=== PATIENT | male | born 1950 | race Caucasian/White ===

== ENCOUNTER 2018-11-24 13:16 | Inpatient (IN) | payer MEDICARE, OTHER ==
[2018-11-24] VITALS (14 sets, daily range): BP systolic 118–154; BP diastolic 63–95; PULSE 52–78; RESP 12–22
[~2018-11-24] VITALS: Ht 182.9 cm; Wt 105.7 kg
[2018-11-24] MEDS ORDERED: GABA300C16 PO (13:50)
[2018-11-24] MEDS ORDERED: LISI-313 PO (13:51)
[2018-11-24] MEDS ORDERED: METF500T24 PO (13:51)
[2018-11-24] MEDS ORDERED: PIOG30TA12 PO (13:52)
[2018-11-24] MEDS ORDERED: HEPARIN 1000 UNITS/ML 10 ML INJ ONE (15:38)
[2018-11-24] MEDS ORDERED: MIDAZOLAM 1 MG/ML 2 ML INJ ONE (15:38)
[2018-11-24] MEDS ORDERED: LIDOCAINE 1% (MDV) 20 ML INJ ONE (15:38)
[2018-11-24] MEDS ORDERED: FENTAnyl 50 MCG/ML VIAL ONE (15:39)
[2018-11-24] MEDS ORDERED: VERAPAMIL 5 MG INJ ONE (15:39)
[2018-11-24] MEDS ORDERED: NITROGLYCERIN (IC) 100 MCG/ML INJ ONE (15:39)
[2018-11-24] MEDS ORDERED: IODIXANOL LOCM 100 ML BTL ONE ×3 (16:38→17:25)
[2018-11-24] MEDS ORDERED: IOHEXOL 350MG/ML 50 ML BTL ONE (16:39)
[2018-11-24] MEDS ORDERED: TICAGRELOR 90 MG TABLET ONE (17:35)
[2018-11-24] MEDS ORDERED: ASPIRIN 325 MG TAB ONE (17:43)
[2018-11-24] MEDS ORDERED: SOD CHLORIDE 0.9% 1,000 ML IV SCH (17:59)
[2018-11-24] MEDS ORDERED: morphine 2 MG INJ IV PRN (18:00)
[2018-11-24] MEDS ORDERED: ACETAMINOPHEN 325 MG TAB PO PRN (18:00)
[2018-11-24] MEDS ORDERED: OXYCODONE/ACETAMINOPHEN (5/325) TAB PO PRN (18:00)
[2018-11-24] MEDS ORDERED: ONDANSETRON 4 MG INJ IV PRN (18:00)
[2018-11-24] MEDS ORDERED: AL HYDROX/MG HYDROX/SIMETH 30 ML CUP PO PRN (18:00)
--- NOTE | 2018-11-24 18:16 | SIPON ---
Date/Time of Note Date/Time of Note DATE: 11/24/18 TIME: 18:15 Operative Report Preoperative Diagnosis 1.angina 2.abnl mpi Postoperative Diagnosis 1.obstructive cad s/p stent x 3 to RCA Operation/Procedure Performed 1.[facility] 2.PTCA/stent x 3 to RCA Surgeon see signature line senior assistant manager 1.Kevin 2.Frank Anesthesia: moderate sedation Estimated blood loss: minimal Transfusion Required none Specimen none Grafts/Implants none Complications none VANIA BONILLA Nov 24, 2018 18:16
--- NOTE | 2018-11-24 20:00 | CARRPT ---
DATE OF PROCEDURE: 11/24/2018 TYPE OF PROCEDURES: 1. Left heart catheterization. 2. Coronary angiography. 3. Percutaneous transluminal angioplasty with placement of drug-eluting stents x3, 2.5 x 38 mm, 2.5 x 32 mm and 2.5 x 15 mm. 4. Attempted PTCA of the acute marginal, unsuccessful. 5. Moderate conscious sedation. 6. Measurement of left ventricular end diastolic pressure. ATTENDING PHYSICIAN: Vania Vanegas MD REFERRING PHYSICIAN: Self-referred. INDICATION: Abnormal stress test in a preoperative patient with chest pain. TYPE OF ANESTHESIA: Conscious and local. BRIEF HISTORY AND HOSPITAL COURSE: Mr. Ambriz is a 68-year-old male with a history of hypertension, dyslipidemia, diabetes mellitus, initially complaining substernal chest pain in the preoperative sta te. The patient subsequently underwent cardiac stress test revealing positive ischemia. Given these findings, the patient was referred for and presents today in order to undergo left heart catheteriza tion to assess the possibility of significant obstructive coronary artery disease lending to symptoms of chest pain and subsequent positive stress test findings. DESCRIPTION OF PROCEDURE: After informed consent was obtained, the patient was brought to the [facility] cardiac catheterization lab where his right radial area was prepped and draped in usual sterile fashion. A 2% lidocaine was infiltrated into the right radial area in order to ach ieve adequate anesthesia. Using the modified Seldinger technique, the radial artery was cannulated a nd a 6-Zimbabwean arterial sheath was placed. A 6-Zimbabwean JL4 catheter was used to cannulate the left [place] n coronary ostium. With contrast injection, multiple views of left coronary arterial system were obt ained. JL4 was removed over a guidewire and a JR4 was used to cannulate the right coronary arterial ostium. With contrast injection, multiple views of the right coronary system were obtained. JR4 was removed over a guidewire and the JR4 additionally before removal was also used to cross the LV and LVEDP was measured, pulled back across the aortic valve to assess for significant gradient, which the re was not and removed. Subsequently at this time, we moved directly into an interventional procedur e. The patient had received 5000 units of heparin with his radial cocktail and received an additiona l 3000 in order to achieve an adequate pre-interventional ACT. A 0.014 balance middleweight guidewir e was passed distal to the lesion, placing it down in the PDA and subsequently, we attempted to pass a 2.0 x 12 balloon unsuccessfully into the lesion and we were able to successfully pass a 1.2 threade r into the lesion and balloon inflations were made to the length of this up to 16 to 18 atmospheres. This was removed and at this time, we were able to pass a 2.0 x 20 mm balloon and balloon inflations were made throughout the length of the obstruction including the very proximal portion. Subsequentl y at this time after removing this, the lesion was stented initially with a 2.5 x 38 mm drug-eluting stent deployed at 14 atmospheres and post-dilated with stent delivery system at 15 atmospheres. Sten t balloon was removed. A followup angiogram was obtained revealing excellent deployment of stent, TI MO 3 flow throughout the vessel, no signs of complication including perforation or dissection. Subse quently at this time, a second stent was added proximal to this, 3.0 x 15 mm inflated to 14 atmospher es. The stent overlap area was inflated to 16 atmospheres. Stent delivery balloon was removed revea ling excellent deployment of the second stent. At this point, there is very small portion of the ter ritory that was going to be uncovered and we needed to cover the remainder of the lesion, so it was e lected to stent from the end of the stent back to the proximal portion lesion and a 2.5 x 32 mm drug- eluting stent was placed in the lesion with ____ mm distal stent and inflated to 14 atmospheres and p ost-dilated with stent delivery balloon at 16 atmospheres. Followup angiogram was obtained revealing excellent deployment of stent, YADI 3 flow throughout the vessel, no signs of complication including perforation or dissection. So at this time, attention was made to an acute marginal that bifurcated just proximally to the stent and we were able to place a wire through it but we had to exchange the guide as the patient's guide had come out of the ostium and became soft and would not go back to osti um. We now had a JR4 guide and a Fire Behavior Analyst 50 guidewire distal to the lesion in the acute marginal. We attempted to pass a fresh 2-0 balloon through this unsuccessfully and then 1.2 miter cutter unsuccessfull y. Subsequently at this time due to contrast load and radiation, we decided to terminate the procedu re at this time with patient having a widely patent right coronary artery after being completely occl uded. This completed the procedure. There were no noted complications. FINDINGS: Coronary angiography: Left main is a 4 mm, no significant focal stenosis. Circumflex pro ximally is 3.5 mm vessel. No significant focal stenosis. The circumflex continuation AV groove has diffuse disease up to approximately 80% diffusely and subsequently distal to this contained codominan t vessel left-sided PDA, 2 mm, no significant focal stenosis. There is a mid branching obtuse margin al 2.5 mg which then splits into 2 daughter branches with the more superior branch having a very foca l 90% to 95% stenosis. The LAD proximally is a 3 mm vessel and in its mid portion has luminal irregu larities up to approximately 60% to 70%. There are 3 proximal branching diagonals, most superior bra nch being the largest 2 mm with no significant focal stenosis and other 2 having no significant focal stenoses. The right coronary artery proximally is a 3 mm vessel and in its midportion has 90% steno sis. It has diffuse 90% stenosis all the way down to the PDA and posterolateral branch with very akhil nt flow distal to these and there existed an acute marginal that bifurcates midway through that also has a mid body 90% to 95% stenosis. PTCA and stent placement: Prior to PTCA and stent placement to the right coronary artery, the patien t had a mid 90% lesion and diffuse 90% lesion in distal portion of the vessel. Status post stenting, the patient had no residual lesion, YADI 3 flow throughout the vessel, no signs of complication incl uding perforation or dissection. Measurement of LVEDP 11 to 12, no significant aortic stenosis by gradient. TOTAL FLUOROSCOPY TIME: 30 minutes. TOTAL CONTRAST: 290. IMPRESSION: 1. Two-vessel obstructive coronary artery disease involving long lesions in the patient's right lashell nary artery and lesions within the patient's left-sided dominant circumflex prior to a left-sided PDA and then an acute marginal high-grade lesion. 2. Normal left heart filling pressures. 3. No significant aortic stenosis by gradient. RECOMMENDATIONS: In light of procedure findings at this time, we would: 1. Maintain the patient on aspirin 81 mg 1 tab p.o. daily indefinitely and Brilinta, in which the pa tient was loaded on 90 mg 1 tab p.o. b.i.d. for at least 6 months. 2. Maximal medical management. 3. The patient will be brought back for a staged procedure to intervene upon his circumflex vessels and additionally to attempt PTCA of the patient's acute marginal with improved support and further __ __ of the patient's right coronary stent in order to aid in ____. Dictated By: VANIA AHMADI/DWAYNE Conf#: [id number] DID#: [id number]
[2018-11-24] MEDS: TICAGRELOR 90 MG TABLET PO SCH (22:07)
[2018-11-24] MEDS: ZOLPIDEM 5 MG TAB PO PRN (23:47)
[2018-11-25] VITALS (10 sets, daily range): BP systolic 102–158; BP diastolic 57–78; PULSE 58–88; RESP 18
[2018-11-25] MEDS: ASPIRIN (EC) 81 MG TAB PO SCH (08:07)
[2018-11-25] MEDS: TICAGRELOR 90 MG TABLET PO SCH ×2 (08:12→20:59)
--- NOTE | 2018-11-25 10:07 | RADRPT ---
Vent Rate: 62 bpm RR Interval: 0 msec GA Interval: 184 msec QRS Duration: 84 msec QT Interval: 402 msec QTC Interval: 408 msec P-R-T [place]: 0 - 27 - 27 degrees Unusual P axis, possible ectopic atrial rhythm Abnormal ECG Electronically Signed By: Andrei Naranjo
--- NOTE | 2018-11-25 10:09 | RADRPT ---
Vent Rate: 57 bpm RR Interval: 0 msec MA Interval: 222 msec QRS Duration: 82 msec QT Interval: 410 msec QTC Interval: 399 msec P-R-T [place]: 0 - -1 - 10 degrees Unusual P axis, possible ectopic atrial bradycardia with occasional premature ventricular complexes Low voltage QRS Septal infarct , age undetermined Abnormal ECG Electronically Signed By: Andrei Naranjo
--- NOTE | 2018-11-25 10:10 | RADRPT ---
Vent Rate: 63 bpm RR Interval: 0 msec [place] Interval: 210 msec QRS Duration: 88 msec QT Interval: 410 msec QTC Interval: 419 msec P-R-T [place]: 0 - 37 - 47 degrees Unusual P axis, possible ectopic atrial rhythm with occasional premature ventricular complexes Abnormal ECG Electronically Signed By: Andrei Naranjo
--- NOTE | 2018-11-25 10:35 | HP ---
Date/Time of Note Date/Time of Note DATE: 11/25/18 TIME: 10:34 Assessment/Plan VTE Prophylaxis Risk score (from [facility])>0 risk: 3 SCD applied (from [facility]): Yes Pharmacological prophylaxis: other Lines/Catheters IV Catheter Type (from [facility]): Peripheral IV Assessment/Plan Assessment/Plan -Two-vessel obstructive coronary artery disease involving long lesions in the patient's right coronary artery and lesions within the patient's left-sided dominant circumflex prior to a left-sided PDA and then an acute marginal high- grade lesion. Status post left heart catheterization PTCA and drug-eluting stent placement x3 to RCA by Dr. Vanegas. Plan for staged procedure to intervene with possible PTCA to left sided circumflex lesion tomorrow. Continue aspirin and Brilinta. -Hypertension -Hyperlipidemia -Diabetes mellitus type 2 Further recommendations based on clinical course. Plan of care discussed with Dr. Garrido. Result Diagram: 11/25/18 0711 11/25/18 0711 Results 24hrs Laboratory Tests Test 11/24/18 13:50 11/24/18 13:54 11/24/18 18:30 11/25/18 07:11 White Blood Count 7.7 7.8 Red Blood Count 4.12 L 3.96 L Hemoglobin 13.5 L 12.8 L Hematocrit 40.8 L 39.1 L Mean Corpuscular Volume 99.0 98.7 Mean Corpuscular 32.8 32.3 Hemoglobin Mean Corpuscular 33.1 32.7 Hemoglobin Concent Red Cell Distribution 12.8 12.9 Width Platelet Count 200 183 Mean Platelet Volume 10.4 11.0 H Immature Granulocytes % 0.600 H 0.600 H Neutrophils % 63.3 65.3 Lymphocytes % 25.3 21.4 Monocytes % 8.9 10.9 Eosinophils % 1.6 1.4 Basophils % 0.3 0.4 Nucleated Red Blood 0.0 0.0 Cells % Immature Granulocytes # 0.050 H 0.050 H Neutrophils # 4.9 5.1 Lymphocytes # 2.0 1.7 Monocytes # 0.7 0.9 Eosinophils # 0.1 0.1 Basophils # 0.0 0.0 Nucleated Red Blood 0.0 0.0 Cells # Prothrombin Time 12.9 Prothrombin Time Ratio 1.0 INR International 0.96 Normalized Ratio Activated 27.4 Partial Thromboplast Time Sodium Level 140 142 Potassium Level 4.5 4.8 Chloride Level 107 105 Carbon Dioxide Level 27 29 Anion Gap 6 8 Blood Urea Nitrogen 26 H 23 H Creatinine 0.59 L 0.74 Est Glomerular Filtrat > 60 > 60 Rate mL/min Glucose Level 135 127 Calcium Level 9.1 9.1 Total Bilirubin 0.9 Direct Bilirubin 0.00 Indirect Bilirubin 0.9 Aspartate Amino 23 Transf (AST/SGOT) Alanine 16 Aminotransferase (ALT/SG PT) Alkaline Phosphatase 43 Total Protein 7.0 Albumin 4.0 Globulin 3.00 Albumin/Globulin Ratio 1.33 Triglycerides Level 105 Cholesterol Level 185 LDL Cholesterol, 114 Calculated HDL Cholesterol 50 Cholesterol/HDL Ratio 3.7 Bedside Glucose 143 95 HPI/ROS Admit Date/Time Admit Date/Time Hx of Present Illness The patient is a 68-year-old gentleman with history of hypertension, hyperlipidemia, diabetes with neuropathy, history of kidney stones, and terminal computer operator tobacco use. Patient developed substernal chest pain and underwent cardiac stress test was positive for ischemia. Patient was brought to the hospital and underwent left heart catheterization by Dr. Vanegas on 11/24/2018 which revealed 2 vessel obstructive coronary disease. Patient underwent PTCA and drug-eluting stent placement x3 to right coronary artery. Patient will undergo staged procedure to intervene with possible PTCA to left sided circumflex lesion. Patient is admitted for further evaluation and management to telemetry floor. Patient is seen on telemetry is awake alert denies any chest pain denies any shortness of breath. ROS 12 point review of system is negative except for what mentioned in HPI PMH/Family/Social Past Medical History Medical History: diabetes, high cholesterol, hypertension, other (Kidney stones) Medications Current Medications Miscellaneous Information (* Miscellaneous Pharmacy Order) Hold all Metformin .. . ONCE XX ; Start 11/24/18 at 18:00; Stop 11/26/18 at 17:59 Aspirin (Halfprin) 81 mg DAILY PO Last administered on 11/25/18at 08:07; Admin Dose 81 MG; Start 11/25/18 at 09:00 Ticagrelor (Brilinta) 90 mg BID PO Last administered on 11/25/18at 08:12; Admin Dose 90 MG; Start 11/24/18 at 21:00 Acetaminophen (Tylenol Tab) 650 mg Q4H PRN PO PAIN; Start 11/24/18 at 18:00 Oxycodone/ Acetaminophen (Percocet (5/ 325)) 1 tab Q4H PRN PO PAIN; Start 11/24/18 at 18:00 Morphine Sulfate (morphine) 1 mg Q1H PRN IV PAIN; Start 11/24/18 at 18:00 Zolpidem Tartrate (Ambien) 5 mg HS MAY REPEAT X 1 PRN PO INSOMNIA Last a dministered on 11/24/18at 23:47; Admin Dose 5 MG; Start 11/24/18 at 18:00 Al Hydrox/Mg Hydrox/Simethicone (Mag-Al Plus) 30 ml Q4H PRN PO GASTROINTESTINAL UPSET; Start 11/24/18 at 18:00 Ondansetron HCl (Zofran Inj) 4 mg Q4H PRN IV NAUSEA AND/OR VOMITING; Start 11/24/18 at 18:00 Coded Allergies: No Known Allergy (Unverified , 11/24/18) Past Surgical History Past Surgical Hx: other (Status post back surgery, status post lithotripsy, status post cataract surgery, that is post surgery for left arm fracture ) Family History Significant Family History: diabetes Social History Alcohol Use: none Smoking Status: Current every day smoker Drug Use: none Exam/Review of Systems Vital Signs Vitals Vital Signs Date Temp Pulse Resp B/P (MAP) Pulse Ox O2 O2 Flow FiO2 Time Delivery Rate 11/25/18 58 08:25 11/25/18 98.0 18 136/67 95 Room Air 07:41 (90) Intake and Output 11/24/18 11/24/18 11/25/18 1515:00 23:00 07:00 IntakeIntake Total 525 ml 500 ml OutputOutput Total 550 ml 2 ml BalanceBalance -25 ml 498 ml Exam Constitutional: alert, oriented Head: normocephalic Neck: supple Respiratory: clear to auscultation Cardiovascular: regular rate and rhythm Gastrointestinal: soft, non-tender Musculoskeletal: nl extremities to inspection Extremities: normal pulses Skin: nl [place] Nov 25, 2018 10:35
[2018-11-25] MEDS: ACCU-CHEK XX SCH ×3 (11:22→21:00)
[2018-11-25] MEDS: LINAGLIPTIN 5 MG TABLET PO SCH (11:25)
[2018-11-25] MEDS: INSULIN ASPART [NOVOLOG] 3 ML PEN SC SCH ×3 (11:26→21:00)
[2018-11-25] MEDS ORDERED: DEXTROSE 50% 50 ML SYRINGE IV PRN ×2 (11:30)
[2018-11-25] MEDS ORDERED: GLUCOSE GEL 15 GRAM TUBE PO PRN ×2 (11:30)
[2018-11-25] MEDS ORDERED: GLUCAGON 1 MG INJ IM PRN (11:30)
[2018-11-25] MEDS ORDERED: GLUCOSE GEL 15 GRAM TUBE BUCCAL PRN (11:30)
[2018-11-25] MEDS ORDERED: LISINOPRIL 10 MG TAB PO ONE (15:30)
--- NOTE | 2018-11-25 15:30 | CONS ---
Assessment/Plan Assessment/Plan Hospital Course (Demo Recall) IMP: 1.POD#1 s/p PTCA/stent x 3 to RCA 2.HTN 3.HL 4.abnl MPI-positive for ischemia as outpatient 5.Preop for hernia repair Recc: -Tele -serial ecg's -Continue asa/brilinta -resume baseline ACEI -for second part of staged procedure tomorrow to intervene upon LCX Consultation Date/Type/Reason Admit Date/Time 11/24/18 Initial Consult Date 11/24/18 Type of Consult Cardiology Reason for Consultation angina Requesting Provider: MARILEE FLORES MD Date/Time of Note DATE: 11/25/18 TIME: 15:26 Exam/Review of Systems Vital Signs Vitals Vital Signs Date Temp Pulse Resp B/P (MAP) Pulse Ox O2 O2 Flow FiO2 Time Delivery Rate 11/25/18 58 12:22 11/25/18 98.5 18 158/78 97 Room Air 11:35 (104) Intake and Output 11/24/18 11/24/18 11/25/18 1515:00 23:00 07:00 IntakeIntake Total 525 ml 500 ml OutputOutput Total 550 ml 2 ml BalanceBalance -25 ml 498 ml Exam Exam Review of Systems: CONSTITUTIONAL: No fevers, chills. PULMONARY: No sob CARDIOVASCULAR: No chest pain/palpitations GASTROINTESTINAL: No nausea/vomiting. GENITOURINARY: No hematuria/dysuria. MUSCULOSKELETAL: No myagias/arthalgias. PSYCHIATRIC: The patient denies depression. NEUROLOGIC: No weakness Constitutional: alert Psych: no complaints Head: normocephalic ENMT: mucosa pink and moist Neck: supple, jvd (9 cm water) Respiratory: diminished breath sounds Cardiovascular: regular rate and rhythm Gastrointestinal: soft, non-tender Musculoskeletal: muscle tone Extremities: edema (none) Neurological: other (No focal deficits) Labs Result Diagram: 11/25/18 0711 11/25/18 0711 Results 24hrs Laboratory Tests Test 11/24/18 18:30 11/25/18 07:11 11/25/18 11:24 Bedside Glucose 95 157 White Blood Count 7.8 Red Blood Count 3.96 L Hemoglobin 12.8 L Hematocrit 39.1 L Mean Corpuscular Volume 98.7 Mean Corpuscular Hemoglobin 32.3 Mean Corpuscular Hemoglobin Concent 32.7 Red Cell Distribution Width 12.9 Platelet Count 183 Mean Platelet Volume 11.0 H Immature Granulocytes % 0.600 H Neutrophils % 65.3 Lymphocytes % 21.4 Monocytes % 10.9 Eosinophils % 1.4 Basophils % 0.4 Nucleated Red Blood Cells % 0.0 Immature Granulocytes # 0.050 H Neutrophils # 5.1 Lymphocytes # 1.7 Monocytes # 0.9 Eosinophils # 0.1 Basophils # 0.0 Nucleated Red Blood Cells # 0.0 Sodium Level 142 Potassium Level 4.8 Chloride Level 105 Carbon Dioxide Level 29 Anion Gap 8 Blood Urea Nitrogen 23 H Creatinine 0.74 Est Glomerular Filtrat Rate mL/min > 60 Glucose Level 127 Calcium Level 9.1 Medications Medications Current Medications Miscellaneous Information (* Miscellaneous Pharmacy Order) Hold all Metformin ... ONCE XX ; Start 11/24/18 at 18:00; Stop 11/26/18 at 17:59 Aspirin (Halfprin) 81 mg DAILY PO Last administered on 11/25/18at 08:07; Admin Dose 81 MG; Start 11/25/18 at 09:00 Ticagrelor (Brilinta) 90 mg BID PO Last administered on 11/25/18at 08:12; Admin Dose 90 MG; Start 11/24/18 at 21:00 Acetaminophen (Tylenol Tab) 650 mg Q4H PRN PO PAIN; Start 11/24/18 at 18:00 Oxycodone/ Acetaminophen (Percocet (5/ 325)) 1 tab Q4H PRN PO PAIN; Start 11/24/18 at 18:00 Morphine Sulfate (morphine) 1 mg Q1H PRN IV PAIN; Start 11/24/18 at 18:00 Zolpidem Tartrate (Ambien) 5 mg HS MAY REPEAT X 1 PRN PO INSOMNIA Last administered on 11/24/18at 23:47; Admin Dose 5 MG; Start 11/24/18 at 18:00 Al Hydrox/Mg Hydrox/Simethicone (Mag-Al Plus) 30 ml Q4H PRN PO GASTROINTESTINAL UPSET; Start 11/24/18 at 18:00 Ondansetron HCl (Zofran Inj) 4 mg Q4H PRN IV NAUSEA AND/OR VOMITING; Start 11/24/18 at 18:00 Linagliptin (Tradjenta) 5 mg DAILY PO Last administered on 11/25/18at 11:25; Admin Dose 5 MG; Start 11/25/18 at 11:00 Diagnostic Test (Pha) (Accu-Chek) 1 ea AC MEALS AND BEDTIME XX Last administered on 11/25/18at 11:22; Admin Dose 1 EA; Start 11/25/18 at 11:20 Insulin Aspart (Novolog Insulin Pen) NOVOLOG *MILD* ALGORITHM WITH MEALS BEDT [place] SC ; Start 11/25/18 at 11:50 Miscellaneous Information 1 ea NOTE XX ; Start 11/25/18 at 11:30 Glucose (Glutose) 15 gm Q15M PRN PO DECREASED GLUCOSE; Start 11/25/18 at 11:30 Glucose (Glutose) 22.5 gm Q15M PRN PO DECREASED GLUCOSE; Start 11/25/18 at 11:30 Dextrose (D50w Syringe) 25 ml Q15M PRN IV DECREASED GLUCOSE; Start 11/25/18 at 11:30 Dextrose (D50w Syringe) 50 ml Q15M PRN IV DECREASED GLUCOSE; Start 11/25/18 at 11:30 Glucagon (Glucagen) 1 mg Q15M PRN IM DECREASED GLUCOSE; Start 11/25/18 at 11:30 Glucose (Glutose) 15 gm Q15M PRN BUCCAL DECREASED GLUCOSE; Start 11/25/18 at 11:30 VANIA BONILLA Nov 25, 2018 15:30
[2018-11-25] MEDS: ATORVASTATIN 20 MG TAB PO SCH (20:53)
[2018-11-25] MEDS: ZOLPIDEM 5 MG TAB PO PRN (22:14)
[2018-11-26] VITALS (19 sets, daily range): BP systolic 113–163; BP diastolic 53–73; PULSE 52–65; RESP 15–28
[2018-11-26] MEDS: ACCU-CHEK XX SCH ×4 (07:24→20:17)
[2018-11-26] MEDS: INSULIN ASPART [NOVOLOG] 3 ML PEN SC SCH ×4 (07:24→20:17)
[2018-11-26] MEDS: LISINOPRIL 10 MG TAB PO SCH (08:25)
[2018-11-26] MEDS: ASPIRIN (EC) 81 MG TAB PO SCH (08:26)
[2018-11-26] MEDS: LINAGLIPTIN 5 MG TABLET PO SCH (08:26)
[2018-11-26] MEDS: TICAGRELOR 90 MG TABLET PO SCH ×2 (08:28→20:17)
[2018-11-26] MEDS ORDERED: LIDOCAINE 1% (MDV) 20 ML INJ ONE (10:27)
[2018-11-26] MEDS ORDERED: IODIXANOL LOCM 100 ML BTL ONE ×2 (10:27→11:40)
[2018-11-26] MEDS ORDERED: BIVALIRUDIN 250MG /NS 50 ML 50 ML IVPB ONE (10:27)
[2018-11-26] MEDS ORDERED: FENTAnyl 50 MCG/ML VIAL ONE (10:28)
[2018-11-26] MEDS ORDERED: NITROGLYCERIN (IC) 100 MCG/ML INJ ONE ×2 (10:28→10:43)
[2018-11-26] MEDS ORDERED: MIDAZOLAM 1 MG/ML 2 ML INJ ONE (10:28)
[2018-11-26] MEDS ORDERED: IOHEXOL 350MG/ML 50 ML BTL ONE (11:40)
[2018-11-26] MEDS ORDERED: SOD CHLORIDE 0.9% 1,000 ML IV SCH (12:36)
--- NOTE | 2018-11-26 12:42 | CONS ---
Assessment/Plan Assessment/Plan Hospital Course (Demo Recall) IMP: 1.POD#2 s/p PTCA/stent x 3 to RCA 2.HTN 3.HL 4.abnl MPI-positive for ischemia as outpatient 5.Preop for hernia repair Recc: -Tele -serial ecg's -Continue asa/brilinta -Continue baseline ACEI -for second part of staged procedure to intervene upon LCX today Consultation Date/Type/Reason Admit Date/Time Nov 25, 2018 at 19:59 Initial Consult Date 11/24/18 Type of Consult Cardiology Reason for Consultation angina/abnl mpi Requesting Provider: MARILEE FLORES MD Date/Time of Note DATE: 11/26/18 TIME: 12:40 Exam/Review of Systems Vital Signs Vitals Vital Signs Date Temp Pulse Resp B/P (MAP) Pulse Ox O2 O2 Flow FiO2 Time Delivery Rate 11/26/18 56 10:03 11/26/18 97.7 18 148/73 95 Room Air 07:45 (98) Intake and Output 11/25/18 11/25/18 11/26/18 1515:00 23:00 07:00 IntakeIntake Total 1020 ml 650 ml OutputOutput Total 4 ml 3 ml BalanceBalance 1016 ml 647 ml Exam Exam Review of Systems: CONSTITUTIONAL: No fevers, chills. PULMONARY: No sob CARDIOVASCULAR: No chest pain/palpitations GASTROINTESTINAL: No nausea/vomiting. GENITOURINARY: No hematuria/dysuria. MUSCULOSKELETAL: No myagias/arthalgias. PSYCHIATRIC: The patient denies depression. NEUROLOGIC: No weakness Constitutional: alert, oriented Psych: no complaints Head: normocephalic Eyes: nl conjunctiva ENMT: mucosa pink and moist Neck: supple, jvd (9) Respiratory: diminished breath sounds Cardiovascular: regular rate and rhythm Gastrointestinal: non-tender Musculoskeletal: muscle tone (normal) Extremities: edema (none) Neurological: other (no focal deficits) Labs Result Diagram: 11/26/18 0635 11/26/18 0635 Results 24hrs Laboratory Tests Test 11/25/18 17:14 11/25/18 20:50 11/26/18 06:35 11/26/18 07:23 Bedside Glucose 130 139 136 White Blood Count 7.3 Red Blood Count 4.01 L Hemoglobin 13.1 L Hematocrit 39.2 L Mean Corpuscular Volume 97.8 Mean Corpuscular 32.7 Hemoglobin Mean Corpuscular 33.4 Hemoglobin Concent Red Cell Distribution 12.7 Width Platelet Count 178 Mean Platelet Volume 10.4 Immature Granulocytes % 0.800 H Neutrophils % 65.4 Lymphocytes % 20.7 Monocytes % 11.0 Eosinophils % 1.8 Basophils % 0.3 Nucleated Red Blood 0.0 Cells % Immature Granulocytes # 0.060 H Neutrophils # 4.8 Lymphocytes # 1.5 Monocytes # 0.8 Eosinophils # 0.1 Basophils # 0.0 Nucleated Red Blood 0.0 Cells # Sodium Level 141 Potassium Level 4.1 Chloride Level 107 Carbon Dioxide Level 25 Anion Gap 9 Blood Urea Nitrogen 20 Creatinine 0.57 L Est Glomerular Filtrat > 60 Rate mL/min Glucose Level 144 Hemoglobin A1c 6.8 H Calcium Level 9.1 Magnesium Level 1.7 Medications Medications Current Medications Miscellaneous Information (* Miscellaneous Pharmacy Order) Hold all Metformin ... ONCE XX Last administered on 11/25/18at 17:10; Admin Dose 1 EA; Start 11/24/18 at 18:00; Stop 11/26/18 at 17:59 Aspirin (Halfprin) 81 mg DAILY PO Last administered on 11/26/18at 08:26; Admin Dose 81 MG; Start 11/25/18 at 09:00 Ticagrelor (Brilinta) 90 mg BID PO Last administered on 11/26/18at 08:28; Admin Dose 90 MG; Start 11/24/18 at 21:00 Acetaminophen (Tylenol Tab) 650 mg Q4H PRN PO PAIN; Start 11/24/18 at 18:00 Oxycodone/ Acetaminophen (Percocet (5/ 325)) 1 tab Q4H PRN PO PAIN; Start 11/24/18 at 18:00 Morphine Sulfate (morphine) 1 mg Q1H PRN IV PAIN; Start 11/24/18 at 18:00 Zolpidem Tartrate (Ambien) 5 mg HS MAY REPEAT X 1 PRN PO INSOMNIA Last administered on 11/25/18at 22:14; Admin Dose 5 MG; Start 11/24/18 at 18:00 Al Hydrox/Mg Hydrox/Simethicone (Mag-Al Plus) 30 ml Q4H PRN PO GASTROINTESTINAL UPSET; Start 11/24/18 at 18:00 Ondansetron HCl (Zofran Inj) 4 mg Q4H PRN IV NAUSEA AND/OR VOMITING; Start 11/24/18 at 18:00 Linagliptin (Tradjenta) 5 mg DAILY PO Last administered on 11/26/18at 08:26; Admin Dose 5 MG; Start 11/25/18 at 11:00 Diagnostic Test (Pha) (Accu-Chek) 1 ea AC MEALS AND BEDTIME XX Last administered on 11/26/18at 07:24; Admin Dose 1 EA; Start 11/25/18 at 11:20 Insulin Aspart (Novolog Insulin Pen) NOVOLOG *MILD* ALGORITHM WITH MEALS BEDTIME SC ; Start 11/25/18 at 11:50 Miscellaneous Information 1 ea NOTE XX ; Start 11/25/18 at 11:30 Glucose (Glutose) 15 gm Q15M PRN PO DECREASED GLUCOSE; Start 11/25/18 at 11:30 Glucose (Glutose) 22.5 gm Q15M PRN PO DECREASED GLUCOSE; Start 11/25/18 at 11:30 Dextrose (D50w Syringe) 25 ml Q15M PRN IV DECREASED GLUCOSE; Start 11/25/18 at 11:30 Dextrose (D50w Syringe) 50 ml Q15M PRN IV DECREASED GLUCOSE; Start 11/25/18 at 11:30 Glucagon (Glucagen) 1 mg Q15M PRN IM DECREASED GLUCOSE; Start 11/25/18 at 11:30 Glucose (Glutose) 15 gm Q15M PRN BUCCAL DECREASED GLUCOSE; Start 11/25/18 at 11:30 Lisinopril (Zestril) 10 mg DAILY PO Last administered on 11/26/18at 08:25; Admin Dose 10 MG; Start 11/26/18 at 09:00 Atorvastatin Calcium (Lipitor) 20 mg HS PO Last administered on 11/25/18at 20:53; Admin Dose 20 MG; Start 11/25/18 at 21:00 VANIA BONILLA Nov 26, 2018 12:42
--- NOTE | 2018-11-26 12:44 | SIPON ---
Date/Time of Note Date/Time of Note DATE: 11/26/18 TIME: 12:42 Operative Report Preoperative Diagnosis 1.cad 2.angina Postoperative Diagnosis 1,successful PTCA/stent x 2 to LCX 2.Successful PTCA to RCA/acute narginal Operation/Procedure Performed 1.[facility] 2.PTCA/stent Surgeon see signature line assistant professor of biology 1.Leonardo Anesthesia: moderate sedation Estimated blood loss: minimal Transfusion Required none Specimen none Grafts/Implants none Complications none VANIA BONILLA Nov 26, 2018 12:44
[2018-11-26] MEDS ORDERED: ACETAMINOPHEN 325 MG TAB PO PRN (13:00)
[2018-11-26] MEDS ORDERED: OXYCODONE/ACETAMINOPHEN (5/325) TAB PO PRN (13:00)
[2018-11-26] MEDS ORDERED: ZOLPIDEM 5 MG TAB PO PRN (13:00)
[2018-11-26] MEDS ORDERED: ONDANSETRON 4 MG INJ IV PRN (13:00)
[2018-11-26] MEDS ORDERED: morphine 2 MG INJ IV PRN (13:00)
[2018-11-26] MEDS ORDERED: AL HYDROX/MG HYDROX/SIMETH 30 ML CUP PO PRN (13:00)
--- NOTE | 2018-11-26 13:05 | PN ---
Date/Time of Note Date/Time of Note DATE: 11/26/18 TIME: 13:02 Assessment/Plan VTE Prophylaxis Risk score (from Ns)>0 risk: 4 SCD applied (from Ns): Yes Pharmacological prophylaxis: other Lines/Catheters IV Catheter Type [facility]from [facility] [place] [facility] Assessment/Plan Hospital Course Patient was taken to [facility] for procedure, no acute events reported prior to procedure. Assessment/Plan -Two-vessel obstructive coronary artery disease involving long lesions in the patient's right coronary artery and lesions within the patient's left-sided dominant circumflex prior to a left-sided PDA and then an acute marginal high- grade lesion. Status post left heart catheterization PTCA and drug-eluting stent placement x3 to RCA by Dr. Vanegas. Plan for staged procedure to intervene with possible PTCA to left sided circumflex lesion today. Continue aspirin and Brilinta. -Hypertension -Hyperlipidemia -Diabetes mellitus type 2 Further recommendations based on clinical course. Plan of care discussed with Dr. Garrido. Result Diagram: 11/26/18 0635 11/26/18 0635 Results 24hrs Laboratory Tests Test 11/25/18 17:14 11/25/18 20:50 11/26/18 06:35 11/26/18 07:23 Bedside Glucose 130 139 136 White Blood Count 7.3 Red Blood Count 4.01 L Hemoglobin 13.1 L Hematocrit 39.2 L Mean Corpuscular Volume 97.8 Mean Corpuscular 32.7 Hemoglobin Mean Corpuscular 33.4 Hemoglobin Concent Red Cell Distribution 12.7 Width Platelet Count 178 Mean Platelet Volume 10.4 Immature Granulocytes % 0.800 H Neutrophils % 65.4 Lymphocytes % 20.7 Monocytes % 11.0 Eosinophils % 1.8 Basophils % 0.3 Nucleated Red Blood 0.0 Cells % Immature Granulocytes # 0.060 H Neutrophils # 4.8 Lymphocytes # 1.5 Monocytes # 0.8 Eosinophils # 0.1 Basophils # 0.0 Nucleated Red Blood 0.0 Cells # Sodium Level 141 Potassium Level 4.1 Chloride Level 107 Carbon Dioxide Level 25 Anion Gap 9 Blood Urea Nitrogen 20 Creatinine 0.57 L Est Glomerular Filtrat > 60 Rate mL/min Glucose Level 144 Hemoglobin A1c 6.8 H Calcium Level 9.1 Magnesium Level 1.7 Exam/Review of Systems Exam Vitals Vital Signs Date Temp Pulse Resp B/P (MAP) Pulse Ox O2 O2 Flow FiO2 Time Delivery Rate 11/26/18 56 10:03 11/26/18 97.7 18 148/73 95 Room Air 07:45 (98) Intake and Output 11/25/18 11/25/18 11/26/18 1515:00 23:00 07:00 IntakeIntake Total 1020 ml 650 ml OutputOutput Total 4 ml 3 ml BalanceBalance 1016 ml 647 ml Results Results 24hrs Laboratory Tests Test 11/25/18 17:14 11/25/18 20:50 11/26/18 06:35 11/26/18 07:23 Bedside Glucose 130 139 136 White Blood Count 7.3 Red Blood Count 4.01 L Hemoglobin 13.1 L Hematocrit 39.2 L Mean Corpuscular Volume 97.8 Mean Corpuscular 32.7 Hemoglobin Mean Corpuscular 33.4 Hemoglobin Concent Red Cell Distribution 12.7 Width Platelet Count 178 Mean Platelet Volume 10.4 Immature Granulocytes % 0.800 H Neutrophils % 65.4 Lymphocytes % 20.7 Monocytes % 11.0 Eosinophils % 1.8 Basophils % 0.3 Nucleated Red Blood 0.0 Cells % Immature Granulocytes # 0.060 H Neutrophils # 4.8 Lymphocytes # 1.5 Monocytes # 0.8 Eosinophils # 0.1 Basophils # 0.0 Nucleated Red Blood 0.0 Cells # Sodium Level 141 Potassium Level 4.1 Chloride Level 107 Carbon Dioxide Level 25 Anion Gap 9 Blood Urea Nitrogen 20 Creatinine 0.57 L Est Glomerular Filtrat > 60 Rate mL/min Glucose Level 144 Hemoglobin A1c 6.8 H Calcium Level 9.1 Magnesium Level 1.7 Medications Medication Current Medications Miscellaneous Information (* Miscellaneous Pharmacy Order) Hold all Metformin ... ONCE XX Last administered on 11/25/18at 17:10; Admin Dose 1 EA; Start 11/24/18 at 18:00; Stop 11/26/18 at 17:59 Aspirin (Halfprin) 81 mg DAILY PO Last administered on 11/26/18at 08:26; Admin Dose 81 MG; Start 11/25/18 at 09:00 Ticagrelor (Brilinta) 90 mg BID PO Last administered on 11/26/18at 08:28; Admin Dose 90 MG; Start 11/24/18 at 21:00 Acetaminophen (Tylenol Tab) 650 mg Q4H PRN PO PAIN; Start 11/24/18 at 18:00 Oxycodone/ Acetaminophen (Percocet (5/ 325)) 1 tab Q4H PRN PO PAIN; Start 11/24/18 at 18:00 Morphine Sulfate (morphine) 1 mg Q1H PRN IV PAIN; Start 11/24/18 at 18:00 Zolpidem Tartrate (Ambien) 5 mg HS MAY REPEAT X 1 PRN PO INSOMNIA Last administered on 11/25/18at 22:14; Admin Dose 5 MG; Start 11/24/18 at 18:00 Ondansetron HCl (Zofran Inj) 4 mg Q4H PRN IV NAUSEA AND/OR VOMITING; Start 11/24/18 at 18:00 Linagliptin (Tradjenta) 5 mg DAILY PO Last administered on 11/26/18at 08:26; Admi n Dose 5 MG; Start 11/25/18 at 11:00 Diagnostic Test (Pha) (Accu-Chek) 1 ea AC MEALS AND BEDTIME XX Last administered on 11/26/18at 07:24; Admin Dose 1 EA; Start 11/25/18 at 11:20 Insulin Aspart (Novolog Insulin Pen) NOVOLOG *MILD* ALGORITHM WITH MEALS BEDTIME SC ; Start 11/25/18 at 11:50 Miscellaneous Information 1 ea NOTE XX ; Start 11/25/18 at 11:30 Glucose (Glutose) 15 gm Q15M PRN PO DECREASED GLUCOSE; Start 11/25/18 at 11:30 Glucose (Glutose) 22.5 gm Q15M PRN PO DECREASED GLUCOSE; Start 11/25/18 at 11:30 Dextrose (D50w Syringe) 25 ml Q15M PRN IV DECREASED GLUCOSE; Start 11/25/18 at 11:30 Dextrose (D50w Syringe) 50 ml Q15M PRN IV DECREASED GLUCOSE; Start 11/25/18 at 11:30 Glucagon (Glucagen) 1 mg Q15M PRN IM DECREASED GLUCOSE; Start 11/25/18 at 11:30 Glucose (Glutose) 15 gm Q15M PRN BUCCAL DECREASED GLUCOSE; Start 11/25/18 at 11:30 Lisinopril (Zestril) 10 mg DAILY PO Last administered on 11/26/18at 08:25; Admin Dose 10 MG; Start 11/26/18 at 09:00 Atorvastatin Calcium (Lipitor) 20 mg HS PO Last administered on 11/25/18at 20:53; Admin Dose 20 MG; Start 11/25/18 at 21:00 Miscellaneous Information (* Miscellaneous Pharmacy Order) Hold all Metformin ... ONCE ONCE XX ; Start 11/26/18 at 13:00; Stop 11/26/18 at 13:01 Bivalirudin 50 ml @ 36.995 mls/ hr Q1H22M IVPB ; Start 11/26/18 at 14:00; Stop 11/26/18 at 15:21; Status UNV Acetaminophen (Tylenol Tab) 650 mg Q4H PRN PO PAIN; Start 11/26/18 at 13:00 Morphine Sulfate (morphine) 1 mg Q1H PRN IV PAIN; Start 11/26/18 at 13:00 Al Hydrox/Mg Hydrox/Simethicone (Mag-Al Plus) 30 ml Q4H PRN PO GASTROINTESTINAL UPSET; Start 11/26/18 at 13:00 Sodium Chloride 1,000 ml @ 75 mls/hr [id number] IV ; Start 11/26/18 at 12:36; Stop 11/27/18 at 01:55 KOKO NICK Nov 26, 2018 13:05
[2018-11-26] MEDS ORDERED: BIVALIRUDIN 250MG /NS 50 ML 50 ML IVPB SCH (14:00)
--- NOTE | 2018-11-26 16:40 | CARRPT ---
DATE OF PROCEDURE: 11/26/2018 TYPE OF PROCEDURES: 1. Left heart catheterization. 2. Coronary angiography. 3. Percutaneous transluminal coronary angioplasty with placement of Resolute drug-eluting stent x1 t o obtuse marginal distal, 2.25 x 15 mm. 4. Percutaneous transluminal coronary angioplasty with placement of Resolute drug-eluting stent to l eft-sided PDA, 2.25 x 18 mm. 5. Percutaneous transcoronary angioplasty to right acute marginal. 6. Moderate conscious sedation. ATTENDING PHYSICIAN: Vania Vanegas MD REFERRING PHYSICIAN: Self-referred. INDICATION: Chest pain preoperative, positive stress test findings for ischemia. TYPE OF ANESTHESIA: Conscious local. BRIEF HISTORY AND HOSPITAL COURSE: Mr. Ambriz is a 68-year-old male with hypertension, dyslipidemia , diabetes mellitus, who initially presented with complaints of substernal chest pain in the preopera tive state and underwent a cardiac stress test showing positive ischemia. Given these findings, the patient was referred for and presented for left heart catheterization on Friday. At that time, the patient was found to have multivessel obstructive coronary artery disease and underwent a PTCA and st ent placement x3 to right coronary artery and has now been brought back in a staged fashion to be int ervened upon his circumflex vessel and possible acute marginal. DESCRIPTION OF PROCEDURE: After informed consent was obtained, patient was brought to the [facility] where his right groin was prepped in a sterile fashion. A 2% lid ocaine was infiltrated in the right groin in order to achieve adequate anesthesia. With modified Mary dennis technique, the right femoral artery was cannulated and a 6-Brazilian arterial sheath was placed. A 6-Brazilian CLS JL3.5 catheter was used to cannulate the left main coronary ostium. With contrast in jection, multiple views of the left-sided vessels were obtained. At this time, we moved directly int o an interventional procedure. The patient received Angiomax bolus in continuous infusion. A 0.014 Geriatric Nurse Practitioner 50 guidewire was passed distal to the lesion in the obtuse marginal. This was pretreated with a 2.0 x 12 mm balloon up to 12 to 14 atmospheres. This was removed and was stented with a 2.25 x 15 mm drug-eluting stent up to 14 atmospheres x2. The balloon was removed. Followup angiography was ob tained revealing excellent result, deployment of stent, YADI 3 flow throughout the vessel, no signs o f complication including perforation or dissection. At this time, the wire was pulled back and place d down the circ continuation AV groove which contained the left-sided PDA and this was pretreated onc e with a 2.0 x 12 mm balloon up to 14 atmospheres. This was removed after multiple inflations and wa s stented with a 2.25 x 18 mm drug-eluting stent deployed at 14 atmospheres x2. The stent balloon wa s removed. Followup angiogram was obtained revealing excellent result, deployment of stent, YADI 3 f low throughout the vessel, no signs of complication including perforation or dissection. Subsequentl y at this time, the wire was pulled back and both vessels were further obtained after 200 mcg of IC n itroglycerin revealing result for both stents, YADI 3 flow throughout the vessel, no signs of complic ation including perforation or dissection. Subsequently at this time, the guide was removed and atte ntion was now turned to the right coronary artery. A JR4 guide with sideholes was used to cannulate the right coronary arterial ostium. A 0.014 Geriatric Nurse Practitioner 50 guidewire was passed distal to the lesions in t he main right coronary artery where there is stent with just the ostium which is ____ the acute hannah nal. In this stent we placed Noncompliant 2.75 x 12 mm balloon within the stent to further post-dila te the stent up to 16 and 18 atmospheres x2. This was removed and at this time we pulled the wire ba ck and we were not able to easily pass into the acute marginal side branch and then subsequently we w ere able to easily pass initially 2.0 x 12 balloon into the area of stenosis. Several inflations wer e made. This was kept watermelon seeding through the lesion very focal and tight. This was removed and 2.0 x 20 mm balloon was used to further post-dilate this lesion up to 14 atmospheres multiple olegario es and was removed revealing improved appearance with excellent flow down the vessel. Subsequently a t this time, the guidewires and balloons were removed. The patient underwent a right femoral arteria l angiogram revealing the sheath to be well placed in the right common femoral artery. Subsequently, this was removed and a 6-Brazilian Perclose device was used to seal the vessels completing procedure. There were no complications. FINDINGS: Coronary angiography: Left main proximally is 4 mm vessel. Circumflex is 3.5 mm vessel a nd mild luminal irregularities of 20% to 25% in its portion and a mid branching obtuse marginal with 2 daughter branches with the most superior daughter branch has been having a very focal 90% to 95% st enosis. The circ continuation AV groove which then ____ left-sided PDA also has a very focal 80% to 90% stenosis. The right coronary artery proximally is 2.5 mm vessel with diffuse stenoses up to appr oximately 50% in its proximal portion and there is a long stented zone in right coronary artery which was widely patent and acute marginal which branches just off the proximal portion of the stent which has a very focal 90% stenosis in mid portion. PTCA and stent placement: 1. PTCA and stent placement within the patient's obtuse marginal: Prior to PTCA and stent placement , the patient had a 99% focal block. Post-PTCA and stent placement, the patient has no residual sten osis, YADI 3 flow throughout the vessel, no signs of complication including perforation or dissection . 2. PTCA and stent placement to a left-sided PDA: Prior left-sided PDA PTCA and stent placement, the patient had a complex-appearing 80% to 90% stenosis. Post-PTCA and stent placement, the patient has no residual stenosis and has very mild step down at the proximal stent and mild step down at distal stent and no signs of complication including perforation or dissection. 3. PTCA within the patient's acute marginal: Prior to PTCA with an acute marginal, the patient had a very focal 99%. Post PTCA, the patient had residual 30% stenosis with no signs of complication inc luding perforation or dissection and excellent YADI 3 flow throughout the vessel. TOTAL FLUOROSCOPY TIME: 23 minutes. TOTAL CONTRAST: 280 mL. IMPRESSION: 1. Multivessel obstructive coronary artery disease, status post successful PTCA and stent placement x1 to: A. Circumflex, obtuse marginal. B. Left-sided PDA. C. ____ to acute marginal right coronary artery. 2. Widely patent previously placed right coronary stents. RECOMMENDATIONS: In light of procedure findings at this time, we would: 1. Maintain the patient on aspirin 81 mg 1 tab p.o. daily indefinitely. 2. Brilinta 90 mg 1 tab p.o. b.i.d. for at least 6 months. 3. Maximize medical management. 4. Aggressive risk factor reduction. 5. The patient will be readmitted to the telemetry floor for post-catheterization observation and co ntinued management of symptoms with probable discharge the following day. Dictated By: VANIA AHMADI/DWAYNE Conf#: [id number] DID#: [id number] CC: MARILEE FLORES MD;*EndCC*
[2018-11-26] MEDS: ATORVASTATIN 20 MG TAB PO SCH (20:17)
[2018-11-26] MEDS: ZOLPIDEM 5 MG TAB PO PRN (23:20)
[2018-11-27] VITALS (11 sets, daily range): BP systolic 102–125; BP diastolic 51–78; PULSE 53–78; RESP 18
[2018-11-27] MEDS: INSULIN ASPART [NOVOLOG] 3 ML PEN SC SCH ×3 (07:36→17:38)
[2018-11-27] MEDS: ACCU-CHEK XX SCH ×3 (07:36→17:25)
[2018-11-27] MEDS: TICAGRELOR 90 MG TABLET PO SCH (08:04)
[2018-11-27] MEDS: LINAGLIPTIN 5 MG TABLET PO SCH (08:05)
[2018-11-27] MEDS: ASPIRIN (EC) 81 MG TAB PO SCH (08:05)
[2018-11-27] MEDS: LISINOPRIL 10 MG TAB PO SCH (08:06)
--- NOTE | 2018-11-27 14:02 | PN ---
Date/Time of Note Date/Time of Note DATE: 11/27/18 TIME: 14:02 Assessment/Plan VTE Prophylaxis Risk score (from Ns)>0 risk: 4 SCD applied (from Ns): No Lines/Catheters IV C[facility]ter Type [facility]from [facility] Urinary Cath still in place: No Assessment/Plan Assessment/Plan -Two-vessel obstructive coronary artery disease involving long lesions in the patient's right coronary artery and lesions within the patient's left-sided dominant circumflex prior to a left-sided PDA and then an acute marginal high-g rade lesion. Status post left heart catheterization PTCA and drug-eluting stent placement x3 to RCA by Dr. Vanegas. Plan for staged procedure to intervene with possible PTCA to left sided circumflex lesion today. Continue aspirin and Brilinta. -Hypertension -Hyperlipidemia -Diabetes mellitus type 2 Further recommendations based on clinical course. Plan of care discussed with Dr. Garrido. Result Diagram: 11/27/18 0549 11/27/18 0549 Results 24hrs Laboratory Tests Test 11/26/18 17:08 11/26/18 20:16 11/27/18 05:49 11/27/18 07:25 Bedside Glucose 128 136 150 White Blood Count 7.9 Red Blood Count 3.79 L Hemoglobin 12.4 L Hematocrit 37.3 L Mean Corpuscular Volume 98.4 Mean Corpuscular 32.7 Hemoglobin Mean Corpuscular 33.2 Hemoglobin Concent Red Cell Distribution 12.7 Width Platelet Count 185 Mean Platelet Volume 10.5 H Immature Granulocytes % 0.800 H Neutrophils % 64.0 Lymphocytes % 19.7 Monocytes % 13.2 H Eosinophils % 2.0 Basophils % 0.3 Nucleated Red Blood 0.0 Cells % Immature Granulocytes # 0.060 H Neutrophils # 5.0 Lymphocytes # 1.6 Monocytes # 1.0 H Eosinophils # 0.2 Basophils # 0.0 Nucleated Red Blood 0.0 Cells # Sodium Level 141 Potassium Level 4.1 Chloride Level 109 Carbon Dioxide Level 26 Anion Gap 6 Blood Urea Nitrogen 23 H Creatinine 0.71 Est Glomerular Filtrat > 60 Rate mL/min Glucose Level 136 Calcium Level 9.0 Creatine Kinase 116 Creatine Kinase Index 1.9 Creatinine Kinase MB 2.26 (Mass) Troponin I 1.310 *H Test 11/27/18 11:09 Bedside Glucose 174 Subjective 24 Hr Interval Summary Free Text/Dictation tROPONIN ELEVATED; will do second one; fu Exam/Review of Systems Exam Vitals Vital Signs Date Temp Pulse Resp B/P (MAP) Pulse Ox O2 O2 Flow FiO2 Time Delivery Rate 11/27/18 66 12:18 11/27/18 98.0 18 114/60 97 Room Air 11:49 (78) Intake and Output 11/26/18 11/26/18 11/27/18 1414:59 22:59 06:59 IntakeIntake Total 980 ml 400 ml OutputOutput Total 700 ml BalanceBalance 280 ml 400 ml Results Results 24hrs Laboratory Tests Test 11/26/18 17:08 11/26/18 20:16 11/27/18 05:49 11/27/18 07:25 Bedside Glucose 128 136 150 White Blood Count 7.9 Red Blood Count 3.79 L Hemoglobin 12.4 L Hematocrit 37.3 L Mean Corpuscular Volume 98.4 Mean Corpuscular 32.7 Hemoglobin Mean Corpuscular 33.2 Hemoglobin Concent Red Cell Distribution 12.7 Width Platelet Count 185 Mean Platelet Volume 10.5 H Immature Granulocytes % 0.800 H Neutrophils % 64.0 Lymphocytes % 19.7 Monocytes % 13.2 H Eosinophils % 2.0 Basophils % 0.3 Nucleated Red Blood 0.0 Cells % Immature Granulocytes # 0.060 H Neutrophils # 5.0 Lymphocytes # 1.6 Monocytes # 1.0 H Eosinophils # 0.2 Basophils # 0.0 Nucleated Red Blood 0.0 Cells # Sodium Level 141 Potassium Level 4.1 Chloride Level 109 Carbon Dioxide Level 26 Anion Gap 6 Blood Urea Nitrogen 23 H Creatinine 0.71 Est Glomerular Filtrat > 60 Rate mL/min Glucose Level 136 Calcium Level 9.0 Creatine Kinase 116 Creatine Kinase Index 1.9 Creatinine Kinase MB 2.26 (Mass) Troponin I 1.310 *H Test 11/27/18 11:09 Bedside Glucose 174 Medications Medication Current Medications Aspirin (Halfprin) 81 mg DAILY PO Last administered on 11/27/18at 08:05; Admin Dose 81 MG; Start 11/25/18 at 09:00 Ticagrelor (Brilinta) 90 mg BID PO Last administered on 11/27/18at 08:04; Admin Dose 90 MG; Start 11/24/18 at 21:00 Acetaminophen (Tylenol Tab) 650 mg Q4H PRN PO PAIN; Start 11/24/18 at 18:00 Oxycodone/ Acetaminophen (Percocet (5/ 325)) 1 tab Q4H PRN PO PAIN; Start 11/24/18 at 18:00 Morphine Sulfate (morphine) 1 mg Q1H PRN IV PAIN; Start 11/24/18 at 18:00 Zolpidem Tartrate (Ambien) 5 mg HS MAY REPEAT X 1 PRN PO INSOMNIA Last administered on 11/26/18at 23:20; Admin Dose 5 MG; Start 11/24/18 at 18:00 Ondansetron HCl (Zofran Inj) 4 mg Q4H PRN IV NAUSEA AND/OR VOMITING; Start 11/24/18 at 18:00 Linagliptin (Tradjenta) 5 mg DAILY PO Last administered on 11/27/18at 08:05; Admin Dose 5 MG; Start 11/25/18 at 11:00 Diagnostic Test (Pha) (Accu-Chek) 1 ea AC MEALS AND BEDTIME XX Last administered on 11/27/18at 11:10; Admin Dose 1 EA; Start 11/25/18 at 11:20 Insulin Aspart (Novolog Insulin Pen) NOVOLOG *MILD* ALGORITHM WITH MEALS BEDTIME SC ; Start 11/25/18 at 11:50 Miscellaneous Information 1 ea NOTE XX ; Start 11/25/18 at 11:30 Glucose (Glutose) 15 gm Q15M PRN PO DECREASED GLUCOSE; Start 11/25/18 at 11:30 Glucose (Glutose) 22.5 gm Q15M PRN PO DECREASED GLUCOSE; Start 11/25/18 at 11:30 Dextrose (D50w Syringe) 25 ml Q15M PRN IV DECREASED GLUCOSE; Start 11/25/18 at 11:30 Dextrose (D50w Syringe) 50 ml Q15M PRN IV DECREASED GLUCOSE; Start 11/25/18 at 11:30 Glucagon (Glucagen) 1 mg Q15M PRN IM DECREASED GLUCOSE; Start 11/25/18 at 11:30 Glucose (Glutose) 15 gm Q15M PRN BUCCAL DECREASED GLUCOSE; Start 11/25/18 at 11:30 Lisinopril (Zestril) 10 mg DAILY PO Last administered on 11/27/18at 08:06; Admin Dose 10 MG; Start 11/26/18 at 09:00 Atorvastatin Calcium (Lipitor) 20 mg HS PO Last administered on 11/26/18at 20:17; Admin Dose 20 MG; Start 11/25/18 at 21:00 Acetaminophen (Tylenol Tab) 650 mg Q4H PRN PO PAIN; Start 11/26/18 at 13:00 Morphine Sulfate (morphine) 1 mg Q1H PRN IV PAIN; Start 11/26/18 at 13:00 Al Hydrox/Mg Hydrox/Simethicone (Mag-Al Plus) 30 ml Q4H PRN PO GASTROINTESTINAL UPSET; Start 11/26/18 at 13:00 RIKY POOL Nov 27, 2018 14:02
--- NOTE | 2018-11-27 14:05 | PDOCDIS ---
Discharge Instructions CONDITION [id number] Patient Condition: [id number] Stable HOME CARE INSTRUCTIONS: Exocc4Og Diet Instructions: [id number] Low Fat /Cholesterol ACTIVITY: [id number] Activity Restrictions: [id number] Slowly Increase Activity Rest between Activity Avoid heavy lifting Do not Drive Do not operate Machinery Do not operate Power Tool Avoid Heavy Housework [id number] Bathing Restrictions: Efala2r Sponge Bath FOLLOW UP/APPOINTMENTS Follow-up Plan fU with PMD X 1 WEEK FU with cardiology as recommended Call 911 or go to the ER IF symptoms get worse Patient verbalized understanding instructions. violette Garrido/staff RIKY POOL Nov 27, 2018 14:05
[2018-11-27] MEDS ORDERED: ASPI-1044 PO (14:08)
[2018-11-27] MEDS ORDERED: TICA90TA PO (14:08)
[2018-11-27] MEDS ORDERED: LINA5TAB PO (14:08)
--- NOTE | 2018-11-27 15:22 | CONS ---
Assessment/Plan Assessment/Plan Hospital Course (Demo Recall) IMP: 1.POD#3 s/p PTCA/stent x 3 to RCA and now POD#1 s/p PTCA/stent to LCX z 2 and PTCA to RCA/acute marginal 2.HTN 3.HL 4.abnl MPI-positive for ischemia as outpatient 5.Preop for hernia repair Recc: -Tele -serial ecg's -Continue asa/brilinta -Continue baseline ACEI --recheck troponin and id downtrending ok for d/c from cardiac standpoint on current medications with scripts for brillinta 90 po bid and asa 81 mg daily Consultation Date/Type/Reason Admit Date/Time Nov 25, 2018 at 19:59 Initial Consult Date 11/24/18 Type of Consult Cardiology Reason for Consultation angina Requesting Provider: MARILEE FLORES MD Date/Time of Note DATE: 11/27/18 TIME: 15:19 Exam/Review of Systems Vital Signs Vitals Vital Signs Date Temp Pulse Resp B/P (MAP) Pulse Ox O2 O2 Flow FiO2 Time Delivery Rate 11/27/18 98.2 72 18 116/64 95 Room Air 15:16 (81) Intake and Output 11/26/18 11/26/18 11/27/18 1515:00 23:00 07:00 IntakeIntake Total 980 ml 400 ml OutputOutput Total 700 ml BalanceBalance 280 ml 400 ml Exam Exam Review of Systems: CONSTITUTIONAL: No fevers, chills. PULMONARY: No sob CARDIOVASCULAR: No chest pain/palpitations GASTROINTESTINAL: No nausea/vomiting. GENITOURINARY: No hematuria/dysuria. MUSCULOSKELETAL: No myagias/arthalgias. PSYCHIATRIC: The patient denies depression. NEUROLOGIC: No weakness Constitutional: alert, oriented Psych: no complaints Head: normocephalic ENMT: mucosa pink and moist Neck: supple, jvd (9 cm water) Respiratory: clear to auscultation Cardiovascular: regular rate and rhythm Gastrointestinal: soft, non-tender Genitourinary - Male: other (R groin: no sig eccympsis/no bleding or sig paiin) Musculoskeletal: muscle tone (normal) Extremities: edema (none) Labs Result Diagram: 11/27/18 0549 11/27/18 0549 Results 24hrs Laboratory Tests Test 11/26/18 17:08 11/26/18 20:16 11/27/18 05:49 11/27/18 07:25 Bedside Glucose 128 136 150 White Blood Count 7.9 Red Blood Count 3.79 L Hemoglobin 12.4 L Hematocrit 37.3 L Mean Corpuscular Volume 98.4 Mean Corpuscular 32.7 Hemoglobin Mean Corpuscular 33.2 Hemoglobin Concent Red Cell Distribution 12.7 Width Platelet Count 185 Mean Platelet Volume 10.5 H Immature Granulocytes % 0.800 H Neutrophils % 64.0 Lymphocytes % 19.7 Monocytes % 13.2 H Eosinophils % 2.0 Basophils % 0.3 Nucleated Red Blood 0.0 Cells % Immature Granulocytes # 0.060 H Neutrophils # 5.0 Lymphocytes # 1.6 Monocytes # 1.0 H Eosinophils # 0.2 Basophils # 0.0 Nucleated Red Blood 0.0 Cells # Sodium Level 141 Potassium Level 4.1 Chloride Level 109 Carbon Dioxide Level 26 Anion Gap 6 Blood Urea Nitrogen 23 H Creatinine 0.71 Est Glomerular Filtrat > 60 Rate mL/min Glucose Level 136 Calcium Level 9.0 Creatine Kinase 116 Creatine Kinase Index 1.9 Creatinine Kinase MB 2.26 (Mass) Troponin I 1.310 *H Test 11/27/18 11:09 Bedside Glucose 174 Medications Medications Current Medications Aspirin (Halfprin) 81 mg DAILY PO Last administered on 11/27/18at 08:05; Admin Dose 81 MG; Start 11/25/18 at 09:00 Ticagrelor (Brilinta) 90 mg BID PO Last administered on 11/27/18at 08:04; Admin Dose 90 MG; Start 11/24/18 at 21:00 Acetaminophen (Tylenol Tab) 650 mg Q4H PRN PO PAIN; Start 11/24/18 at 18:00 Oxycodone/ Acetaminophen (Percocet (5/ 325)) 1 tab Q4H PRN PO PAIN; Start 11/24/18 at 18:00 Morphine Sulfate (morphine) 1 mg Q1H PRN IV PAIN; Start 11/24/18 at 18:00 Zolpidem Tartrate (Ambien) 5 mg HS MAY REPEAT X 1 PRN PO INSOMNIA Last administered on 11/26/18at 23:20; Admin Dose 5 MG; Start 11/24/18 at 18:00 Ondansetron HCl (Zofran Inj) 4 mg Q4H PRN IV NAUSEA AND/OR VOMITING; Start 11/24/18 at 18:00 Linagliptin (Tradjenta) 5 mg DAILY PO Last administered on 11/27/18at 08:05; Admin Dose 5 MG; Start 11/25/18 at 11:00 Diagnostic Test (Pha) (Accu-Chek) 1 ea AC MEALS AND BEDTIME XX Last administered on 11/27/18at 11:10; Admin Dose 1 EA; Start 11/25/18 at 11:20 Insulin Aspart (Novolog Insulin Pen) NOVOLOG *MILD* ALGORITHM WITH MEALS BEDTIME SC ; Start 11/25/18 at 11:50 Miscellaneous Information 1 ea NOTE XX ; Start 11/25/18 at 11:30 Glucose (Glutose) 15 gm Q15M PRN PO DECREASED GLUCOSE; Start 11/25/18 at 11:30 Glucose (Glutose) 22.5 gm Q15M PRN PO DECREASED GLUCOSE; Start 11/25/18 at 11:30 Dextrose (D50w Syringe) 25 ml Q15M PRN IV DECREASED GLUCOSE; Start 11/25/18 at 11:30 Dextrose (D50w Syringe) 50 ml Q15M PRN IV DECREASED GLUCOSE; Start 11/25/18 at 11:30 Glucagon (Glucagen) 1 mg Q15M PRN IM DECREASED GLUCOSE; Start 11/25/18 at 11:30 Glucose (Glutose) 15 gm Q15M PRN BUCCAL DECREASED GLUCOSE; Start 11/25/18 at 11:30 Lisinopril (Zestril) 10 mg DAILY PO Last administered on 11/27/18at 08:06; Admin Dose 10 MG; Start 11/26/18 at 09:00 Atorvastatin Calcium (Lipitor) 20 mg HS PO Last administered on 11/26/18at 20:17; Admin Dose 20 MG; Start 11/25/18 at 21:00 Acetaminophen (Tylenol Tab) 650 mg Q4H PRN PO PAIN; Start 11/26/18 at 13:00 Morphine Sulfate (morphine) 1 mg Q1H PRN IV PAIN; Start 11/26/18 at 13:00 Al Hydrox/Mg Hydrox/Simethicone (Mag-Al Plus) 30 ml Q4H PRN PO GASTROINTESTINAL UPSET; Start 11/26/18 at 13:00 VANIA BONILLA Nov 27, 2018 15:22
[2018-11-27] MEDS ORDERED: morphine LIQ (10 MG/5 ML) CUP PO PRN (17:30)
--- NOTE | 2018-11-27 18:02 | DS ---
Date/Time of Note Date/Time of Note DATE: 11/27/18 TIME: 18:02 Discharge Summary Admission/Discharge Info Admit Date/Time Nov 25, 2018 at 19:59 Discharge Date/Time Patient Condition: Stable Home Meds Active Scripts Linagliptin (TRADJENTA) 5 Mg Tablet, 5 MG PO DAILY for 30 Days, TAB Prov:RIKY POOL 11/27/18 Aspirin Delayed Release (Aspirin Delayed Release) 81 Mg Tablet., 81 MG PO DAILY for 30 Days Prov:RIKY POOL 11/27/18 Ticagrelor* (Brilinta*) 90 Mg Tablet, 90 MG PO BID for 30 Days, TAB Prov:RIKY POOL 11/27/18 Reported Medications Pioglitazone Hcl* (Actos*) 30 Mg Tablet, 30 MG PO DAILY, #30 TAB 11/24/18 Metformin Hcl* (Metformin Hcl*) 500 Mg Tablet, 500 MG PO WITH BREAKFAST DINNE, #60 TAB 11/24/18 Lisinopril* (Lisinopril*) 5 Mg Tablet, 5 MG PO DAILY, #30 TAB 11/24/18 Gabapentin* (Gabapentin*) 300 Mg Capsule, 300 MG PO QHS, #60 CAP 11/24/18 Follow-up Plan fU with PMD X 1 WEEK FU with cardiology as recommended Call 911 or go to the ER IF symptoms get worse Patient verbalized understanding instructions. dw dr Garrido/staff Primary Care Provider Care Physician No Primary Pending Labs Laboratory Tests Test 11/26/18 20:16 11/27/18 05:49 11/27/18 07:25 11/27/18 11:09 Bedside 136 150 174 Glucose mg/dL (70-220) mg/dL (70-220) mg/dL (70-220) White Blood 7.9 Count 10^3/ul (4.8-1 0.8) Red Blood 3.79 Count 10^6/ul (4.70- 6.10) Hemoglobin 12.4 g/dl (14.0-18. 0) Hematocrit 37.3 % (42.0-52.0) Mean 98.4 Corpuscular fl (82.0-101.0 Volume ) Mean 32.7 Corpuscular pg (29.0-33.0) Hemoglobin Mean 33.2 Corpuscular g/dl (32.0-37. Hemoglobin Conc 0) ent Red Cell 12.7 Distribution % (11.5-14.5) Width Platelet Count 185 10^3/UL (140-4 15) Mean Platelet 10.5 Volume fl (7.4-10.4) Immature 0.800 Granulocytes % % (0.001-0.429 ) Neutrophils % 64.0 % (39.0-77.0) Lymphocytes % 19.7 % (15.0-51.0) Monocytes % 13.2 % (0.0-11.0) Eosinophils % 2.0 % (0.0-7.0) Basophils % 0.3 % (0.0-2.0) Nucleated Red 0.0 Blood Cells % /100WBC (0.0-0 .0) Immature 0.060 Granulocytes # 10^3/ul (0.0-0 .031) Neutrophils # 5.0 10^3/ul (1.6-7 .5) Lymphocytes # 1.6 10^3/ul (0.8-2 .9) Monocytes # 1.0 10^3/ul (0.3-0 .9) Eosinophils # 0.2 10^3/ul (0.0-0 .5) Basophils # 0.0 10^3/ul (0.0-0 .1) Nucleated Red 0.0 Blood Cells # 10^3/ul (0.0-0 .0) Sodium Level 141 mmol/L (135-14 4) Potassium 4.1 Level mmol/L (3.5-5. 1) Chloride Level 109 mmol/L (97-110 ) Carbon Dioxide 26 Level mmol/L (21-31) Anion Gap 6 (5-13) Blood Urea 23 Nitrogen mg/dl (7-20) Creatinine 0.71 mg/dl (0.61-1. 24) Est Glomerular > 60 Filtrat mL/min (>60) Rate mL/min Glucose Level 136 mg/dl (70-220) Calcium Level 9.0 mg/dl (8.4-10. 2) Creatine 116 Kinase IU/L (23-200) Creatine Kinase 1.9 Index Creatinine 2.26 Kinase MB ng/ml (0.0-2.4 (Mass) ) Troponin I 1.310 ng/ml (0.000-0 .120) Test 11/27/18 15:01 Troponin I 1.130 ng/ml (0.000-0. 120) RIKY POOL Nov 27, 2018 18:02
== END 2018-11-27 18:50 | disposition home or self-care (01) | DRG 246 ==
LOC: SDS 13:16 → TEL 21:08 → SDS 11-25 19:59
PROVIDERS: ADMIT Internal Medicine; ATTEND Internal Medicine
PROC: 4A023N7 Measurement of Cardiac Sampling and Pressure, Left Heart, Percutaneous Approach (ICD-10-PCS; 2018-11-24)
PROC: B211YZZ Fluoroscopy of Multiple Coronary Arteries using Other Contrast (ICD-10-PCS; 2018-11-24)
PROC: 027036Z Dilation of Coronary Artery, One Artery with Three Drug-eluting Intraluminal Devices, Percutaneous Approach (ICD-10-PCS; principal; 2018-11-24 15:30)
PROC: 02703ZZ Dilation of Coronary Artery, One Artery, Percutaneous Approach (ICD-10-PCS; 2018-11-26)
PROC: 4A023N7 Measurement of Cardiac Sampling and Pressure, Left Heart, Percutaneous Approach (ICD-10-PCS; 2018-11-26)
PROC: B211YZZ Fluoroscopy of Multiple Coronary Arteries using Other Contrast (ICD-10-PCS; 2018-11-26)
PROC: 027135Z Dilation of Coronary Artery, Two Arteries with Two Drug-eluting Intraluminal Devices, Percutaneous Approach (ICD-10-PCS; 2018-11-26 11:00)
DX: I25.119 Atherosclerotic heart disease of native coronary artery with unspecified angina pectoris (principal); I10 Essential (primary) hypertension; E78.5 Hyperlipidemia, unspecified; E11.9 Type 2 diabetes mellitus without complications
CPT/HCPCS: 71045; 80048; 80053; 80061; 82550; 82553; 82962; 83036; 83735; 84484; 85025; 85610; 85730; 92920; 93005; 93458; C1725; C1760; C1874; C1887; C1894; C9600; C9601; J0583; J1644; J1815; J2250; J3010; J7030; Q9967